=== PATIENT | male | born 1995 | race Caucasian/White ===

== ENCOUNTER 2017-01-16 06:07 | Emergency (ER) | payer OTHER ==
[~2017-01-16] VITALS: Ht 182.9 cm; Wt 96.5 kg
[2017-01-16 06:12] VITALS: TEMP 36.4; Ht 182.9 cm; Wt 96.5 kg
[2017-01-16] MEDS ORDERED: ONDANSETRON INJ 2 MG/ML 2 ML VIAL IV STA ×2 (06:38→09:27)
[2017-01-16] MEDS ORDERED: SODIUM CHLORIDE 0.9% 1000ML 1,000 ML IV STA (06:38)
--- NOTE | 2017-01-16 06:53 | EMERGENCY ROOM VISIT NOTE ---
History First contact with patient: 06:29 Chief Complaint: VOMITING Stated Complaint: VOMITING,SEVERE DEHYDRATION Nursing Triage Summary: VOMITING SINCE LAST NITE History of Present Illness The patient is a 21 year old male who presents to the Emergency Room with complaints of nausea and vomiting. The patient began having vomiting last night at 8pm and has had 10+ episodes since. The vomiting began with food with liquid and is now dry heaving. The patient states he was outside all day touring the [facility] and then between 2pm and 6pm had 6 alcoholic drinks. He also says he has not been drinking water over the last 24 hours. The patient has a history of similar yearly episodes of vomiting since he was 9 year old with no episodes within the last 3 years. He denies ingesting any different foods, fevers, chills, diarrhea, blood in his vomit, chest pain, recent travel, sick contacts, or any other significant acute complaints. Review of Systems See HPI for pertinent positives and negatives. A total of ten systems were reviewed and were otherwise negative. Past Medical/Surgical History Medical Problems: (1) No Known Active Medical Problems Appendectomy Social History Smoking Status: Never Smoker Current/Historical Medications Scheduled PRN Cetirizine (Zyrtec), 10 MG PO DAILY PRN for ALLERGIC REACTION Allergies Coded Allergies: No Known Allergies (Unverified , 01/16/17) Physical Exam Vital Signs Date Time Temp Pulse Resp B/P (MAP) Pulse Ox O2 Delivery O2 Flow Rate FiO2 01/16/17 09:45 102 18 131/71 98 Room Air 01/16/17 06:12 36.4 91 20 154/85 97 Room Air Physical Exam GENERAL: Awake, alert, well-appearing, in no distress HENT: Normocephalic, atraumatic. Oropharynx unremarkable. EYES: Normal conjunctiva. Sclera non-icteric. NECK: Supple. No nuchal rigidity. RESPIRATORY: Clear to auscultation. CARDIAC: Regular rate, normal rhythm. Extremities warm and well perfused. Pulses equal. ABDOMEN: Soft, non-distended. No tenderness to palpation. No rebound or guarding. No masses. RECTAL: Deferred. MUSCULOSKELETAL: Chest examination reveals no tenderness. The back is symmetrical on inspection without obvious abnormality. There is no CVA tenderness to palpation. LOWER EXTREMITIES: Calves are equal size bilaterally and non-tender. No edema. No discoloration. NEURO: Normal sensorium. No sensory or motor deficits noted. SKIN: No rash or jaundice noted. Medical Decision & Procedures Laboratory Results 01/16/17 06:35 Red Blood Count 5.52, Mean Corpuscular Volume 80.8, Mean Corpuscular Hemoglobin 29.2, Mean Corpuscular Hemoglobin Concent 36.1, Mean Platelet Volume 10.4, Neutrophils (%) (Auto) 84.1, Lymphocytes (%) (Auto) 10.7, Monocytes (%) (Auto) 4.5, Eosinophils (%) (Auto) 0.3, Basophils (%) (Auto) 0.1, Neutrophils # (Auto) 8.24, Lymphocytes # (Auto) 1.05, Monocytes # (Auto) 0.44, Eosinophils # (Auto) 0.03, Basophils # (Auto) 0.01 01/16/17 06:35 Test 01/16/17 06:35 White Blood Count 9.80 K/uL (4.8-10.8) Red Blood Count 5.52 M/uL (4.7-6.1) Hemoglobin 16.1 g/dL (14.0-18.0) Hematocrit 44.6 % (42-52) Mean Corpuscular Volume 80.8 fL (80-100) Mean Corpuscular Hemoglobin 29.2 pg (25-34) Mean Corpuscular Hemoglobin Concent 36.1 g/dl (32-36) Platelet Count 295 K/uL (130-400) Mean Platelet Volume 10.4 fL (7.4-10.4) Neutrophils (%) (Auto) 84.1 % Lymphocytes (%) (Auto) 10.7 % Monocytes (%) (Auto) 4.5 % Eosinophils (%) (Auto) 0.3 % Basophils (%) (Auto) 0.1 % Neutrophils # (Auto) 8.24 K/uL (1.4-6.5) Lymphocytes # (Auto) 1.05 K/uL (1.2-3.4) Monocytes # (Auto) 0.44 K/uL (0.11-0.59) Eosinophils # (Auto) 0.03 K/uL (0-0.5) Basophils # (Auto) 0.01 K/uL (0-0.2) RDW Standard Deviation 36.1 fL (36.4-46.3) RDW Coefficient of Variation 12.3 % (11.5-14.5) Immature Granulocyte % (Auto) 0.3 % Immature Granulocyte # (Auto) 0.03 K/uL (0.00-0.02) Anion Gap 7.0 mmol/L (3-11) Est Creatinine Clear Calc Drug Dose 143.1 ml/min Estimated GFR () 125.9 Estimated GFR (Non- 108.6 BUN/Creatinine Ratio 14.2 (10-20) Calcium Level 9.7 mg/dl (8.5-10.1) Total Bilirubin 0.9 mg/dl (0.2-1) Direct Bilirubin 0.2 mg/dl (0-0.2) Aspartate Amino Transf (AST/SGOT) 17 U/L (15-37) Alanine Aminotransferase (ALT/SGPT) 41 U/L (12-78) Alkaline Phosphatase 90 U/L (45-117) Total Protein 8.4 gm/dl (6.4-8.2) Albumin 4.8 gm/dl (3.4-5.0) Lipase 79 U/L (73-393) Medications Administered Medications (Trade) Dose Ordered Sig/Kelvin Route Start Time Stop Time Status Last Admin Dose Admin Sodium Chloride 1,000 ml @ 999 mls/hr Q1H1M STAT IV 01/16/17 06:38 01/16/17 07:38 DC 01/16/17 06:38 999 MLS/HR Ondansetron HCl (Zofran Inj) 4 mg NOW STAT IV 01/16/17 06:38 01/16/17 06:42 DC 01/16/17 06:38 4 MG Ondansetron HCl (Zofran Inj) 4 mg STK-MED ONCE .ROUTE 01/16/17 09:27 01/16/17 09:28 DC 01/16/17 10:01 4 MG Prochlorperazine Edisylate (Compazine Inj) 10 mg NOW STAT IV 01/16/17 10:36 01/16/17 10:37 DC 01/16/17 10:48 10 MG Medical Decision Patient is a 21 year old male that presents with a 12 hour history of vomiting Etiologies such as dehydration, gastroenteritis, obstruction, inflammatory bowel disease, PUD, biliary pathology, pancreatitis, as well as others were entertained. Meds: Zofran 4mg IV, Compazine Fluids: 1L NS Bolus Labs: CBC, BMP, LFT, Lipase Impression Primary Impression: Vomiting Patient is a 21 year old male that presents with nausea and vomiting since 8pm yesterday evening. It appears to be due to dehydration and alcohol ingestion. The patient responded well initially to Zofran and 1L NS bolus. His lab work was within normal limits. The patient then went to sleep, and after he woke up he then had another episode of vomiting. He was then given another dose of 4 mg of IV Zofran. Afterwards he had another episode of vomiting and was subsequently given a dose of Compazine. After falling asleep for another hour he awoke feeling much improved and stated he was repaired for discharge home. Departure Information Dispostion Home / Self-Care Condition GOOD Referrals No Doctor, Assigned (PCP) Forms HOME CARE DOCUMENTATION FORM, IMPORTANT VISIT INFORMATION Patient Instructions My [facility] Additional Instructions Rest and drink fluids as tolerated. Slow sips of water or sports drinks are recommended instead of large amounts all at once. Once your stomach is settled start with a clear liquid diet (jello, soup broth, etc.) and then advance as tolerated. You should avoid full, heavy meals for about 24 hrs from the time your symptoms resolved. Return to the ER immediately for worsening or persistent abdominal pain, vomiting, fevers, chest pains, difficulty breathing, black or bloody stools, worsening of your condition, or as needed. Follow up with your primary physician in 2-3 days for a recheck of your current condition. Problem Qualifiers Primary Impression: Vomiting Vomiting type: unspecified Vomiting Intractability: non-intractable Nausea presence: with nausea Qualified Codes: R11.2 - Nausea with vomiting, unspecified
[2017-01-16] MEDS ORDERED: CETI10TA84 PO (07:03)
[2017-01-16 07:10] LABS: BASO % 0.1 %; BASO ABS # 0.01 K/uL (0-0.2); COMPLETE YES; EOS % 0.3 %; HEMATOCRIT 44.6 % (42-52); IG% 0.3 %; LYMPH % 10.7 %; LYMPH ABS # 1.05 K/uL (1.2-3.4); MEAN CELL VOLUME 80.8 fL (80-100); MEAN CORPUSCULAR HEMOGLOBIN 29.2 pg (25-34); MEAN CORPUSCULAR HGB CONC 36.1 g/dl (32-36); MEAN PLATELET VOLUME 10.4 fL (7.4-10.4); MONO % 4.5 %; NEUT % 84.1 %; PLATELET COUNT 295 K/uL (130-400); RED BLOOD COUNT 5.52 M/uL (4.7-6.1)
[2017-01-16 07:21] LABS: BUN/CREATININE RATIO 14.2 (10-20); CALCIUM 9.7 mg/dl (8.5-10.1); POTASSIUM 3.8 mmol/L (3.5-5.1)
--- NOTE | 2017-01-16 08:53 | EMERGENCY ROOM VISIT NOTE ---
History Report prepared by Aliciaibnuria: Hernesto Loredo Under the Supervision of: Dr. Prudencio Keller D.O. First contact with patient: 06:36 Chief Complaint: VOMITING Stated Complaint: VOMITING,SEVERE DEHYDRATION Nursing Triage Summary: VOMITING SINCE LAST NITE History of Present Illness The patient is a 21 year old male who presents to the Emergency Room with complaints of persistent vomiting beginning last night. He states that was out in the sun all day yesterday, and admits to drinking multiple alcoholic drinks yesterday. He has a history of vomiting associated with dehydration which occurs typically about once a year. The patient believes he is likely currently dehydrated. He denies any headache, bloody vomit, chest pain, diarrhea, or constipation. Nothing has improved his symptoms. The patient states that he has been dry heaving for the past 7 hours. Source of History: patient Onset: Last night Quality: other (vomiting) Timing: other (persistent) Modifying Factors (Relieving): other (none) Associated Symptoms: No headache, No chest pain, No diarrhea Review of Systems See HPI for pertinent positives & negatives. A total of 10 systems reviewed and were otherwise negative. Past Medical & Surgical Medical Problems: (1) No Known Active Medical Problems Family History FH: ALS (amyotrophic lateral sclerosis) Social History Smoking Status: Never Smoker Occupation Status: student Current/Historical Medications Scheduled PRN Cetirizine (Zyrtec), 10 MG PO DAILY PRN for ALLERGIC REACTION Allergies Coded Allergies: No Known Allergies (Unverified , 01/16/17) Physical Exam Vital Signs Date Time Temp Pulse Resp B/P (MAP) Pulse Ox O2 Delivery O2 Flow Rate FiO2 01/16/17 06:12 36.4 91 20 154/85 97 Room Air Physical Exam CONSTITUTIONAL/VITAL SIGNS: Reviewed / noted above. GENERAL: Non-toxic in appearance. INTEGUMENTARY: Warm, dry, and [place]. HEAD: Normocephalic. EYES: without scleral icterus or trauma. ENT/OROPHARYNX: clear and moist. LYMPHADENOPATHY/NECK: Is supple without lymphadenopathy or meningismus. RESPIRATORY: Lungs clear and equal. CARDIOVASCULAR: Regular rate and rhythm. GI/ABDOMEN: Soft. No organomegaly or pulsatile mass. No rebound or guarding. Normal bowel sounds. Epigastric tenderness to palpation. EXTREMITIES: Warm and well perfused. BACK: No CVA tenderness. NEUROLOGICAL: Intact without focal deficits. PSYCHIATRIC: normal affect. MUSCULOSKELETAL: Normally developed with good muscle tone. Medical Decision & Procedures Laboratory Results 01/16/17 06:35 Red Blood Count 5.52, Mean Corpuscular Volume 80.8, Mean Corpuscular Hemoglobin 29.2, Mean Corpuscular Hemoglobin Concent 36.1, Mean Platelet Volume 10.4, Neutrophils (%) (Auto) 84.1, Lymphocytes (%) (Auto) 10.7, Monocytes (%) (Auto) 4.5, Eosinophils (%) (Auto) 0.3, Basophils (%) (Auto) 0.1, Neutrophils # (Auto) 8.24, Lymphocytes # (Auto) 1.05, Monocytes # (Auto) 0.44, Eosinophils # (Auto) 0.03, Basophils # (Auto) 0.01 01/16/17 06:35 Test 01/16/17 06:35 White Blood Count 9.80 K/uL (4.8-10.8) Red Blood Count 5.52 M/uL (4.7-6.1) Hemoglobin 16.1 g/dL (14.0-18.0) Hematocrit 44.6 % (42-52) Mean Corpuscular Volume 80.8 fL (80-100) Mean Corpuscular Hemoglobin 29.2 pg (25-34) Mean Corpuscular Hemoglobin Concent 36.1 g/dl (32-36) Platelet Count 295 K/uL (130-400) Mean Platelet Volume 10.4 fL (7.4-10.4) Neutrophils (%) (Auto) 84.1 % Lymphocytes (%) (Auto) 10.7 % Monocytes (%) (Auto) 4.5 % Eosinophils (%) (Auto) 0.3 % Basophils (%) (Auto) 0.1 % Neutrophils # (Auto) 8.24 K/uL (1.4-6.5) Lymphocytes # (Auto) 1.05 K/uL (1.2-3.4) Monocytes # (Auto) 0.44 K/uL (0.11-0.59) Eosinophils # (Auto) 0.03 K/uL (0-0.5) Basophils # (Auto) 0.01 K/uL (0-0.2) RDW Standard Deviation 36.1 fL (36.4-46.3) RDW Coefficient of Variation 12.3 % (11.5-14.5) Immature Granulocyte % (Auto) 0.3 % Immature Granulocyte # (Auto) 0.03 K/uL (0.00-0.02) Anion Gap 7.0 mmol/L (3-11) Est Creatinine Clear Calc Drug Dose 143.1 ml/min Estimated GFR () 125.9 Estimated GFR (Non- 108.6 BUN/Creatinine Ratio 14.2 (10-20) Calcium Level 9.7 mg/dl (8.5-10.1) Total Bilirubin 0.9 mg/dl (0.2-1) Direct Bilirubin 0.2 mg/dl (0-0.2) Aspartate Amino Transf (AST/SGOT) 17 U/L (15-37) Alanine Aminotransferase (ALT/SGPT) 41 U/L (12-78) Alkaline Phosphatase 90 U/L (45-117) Total Protein 8.4 gm/dl (6.4-8.2) Albumin 4.8 gm/dl (3.4-5.0) Lipase 79 U/L (73-393) Laboratory results as stated above per my review. Medications Administered Medications (Trade) Dose Ordered Sig/Kelvin Route Start Time Stop Time Status Last Admin Dose Admin Sodium Chloride 1,000 ml @ 999 mls/hr Q1H1M STAT IV 01/16/17 06:38 01/16/17 07:38 DC 01/16/17 06:38 999 MLS/HR Ondansetron HCl (Zofran Inj) 4 mg NOW STAT IV 01/16/17 06:38 01/16/17 06:42 DC 01/16/17 06:38 4 MG ED Course 0634: Previous medical records were reviewed. The patient was evaluated in room B10. A complete history and physical examination was performed. 0638: Ordered Zofran Inj 4 mg IV, Sodium Chloride 1000 ml @ 999 mls/hr IV. 0750: I checked in on the patient. He is sleeping comfortably. 0850: On reevaluation, the patient is resting comfortably. I discussed the results and findings with the patient. He verbalized agreement of the treatment plan. He was discharged home. Medical Decision Differential diagnosis: Etiologies such as gastroenteritis, food borne illness, infections, appendicitis , diverticulitis, inflammatory bowel disease, obstruction, GI bleed, biliary pathology, as well as others were entertained. This is a 21-year-old male who presents to the ED with a chief complaint of nausea and vomiting. The patient states that his symptoms started around 8 PM last night. He had been drinking some alcohol prior to this. He reports a history of occasional vomiting over the years. He states that he normally goes to [facility] and gets IV fluids and IV Zofran for this. He denies any significant abdominal pains. Denies any other issues. His physical exam reveals some mild epigastric abdominal tenderness. CBC and PRP are normal. LFTs and lipase are normal. The patient was told the results. The patient was treated with IV fluids and IV Zofran. He is felt to be stable for discharge. Seen in conjunction with the resident. Impression Primary Impression: Vomiting Scribe Attestation The scribe's documentation has been prepared under my direction and personally reviewed by me in its entirety. I confirm that the note above accurately reflects all work, treatment, procedures, and medical decision making performed by me. Departure Information Referrals No Doctor, Assigned (PCP) Patient Instructions My [facility]
[2017-01-16] MEDS ORDERED: ONDANSETRON INJ 2 MG/ML 2 ML VIAL ONE (09:27)
[2017-01-16] MEDS ORDERED: PROCHLORPERAZINE 5 MG/ML 2 ML VIAL IV STA (10:36)
[2017-01-16 12:12] VITALS: BP 147/90; PULSE 94; O2SAT 99
[2017-01-16] MEDS ORDERED: PROM25TA9 PO (22:35)
[2017-01-16] MEDS ORDERED: ONDA4TAB10 SL (22:35)
== END 2017-01-16 12:14 | disposition home or self-care (01) ==
LOC: C.EDB 06:09
DX: R11.10 Vomiting, unspecified (principal)

== ENCOUNTER 2017-01-16 18:55 | Emergency (ER) | payer OTHER ==
[~2017-01-16] VITALS: Ht 182.9 cm; Wt 97.1 kg
[~2017-01-16 18:55] MED LIST: CETI10TA84 PO
[2017-01-16 19:04] VITALS: TEMP 36.9; Ht 182.9 cm; Wt 97.1 kg
[2017-01-16] MEDS ORDERED: PROCHLORPERAZINE 5 MG/ML 2 ML VIAL IV STA (19:22)
[2017-01-16] MEDS ORDERED: DiphenhydrAMINE HCL 50 MG/ML VIAL IV STA (19:22)
[2017-01-16] MEDS ORDERED: SODIUM CHLORIDE 0.9% 1000ML 2,000 ML IV STA (19:22)
[2017-01-16] MEDS ORDERED: RANITIDINE HCL 50 MG/100 ML D5W IV STA (19:22)
[2017-01-16 20:04] LABS: BASO % 0.1 %; BASO ABS # 0.01 K/uL (0-0.2); COMPLETE YES; EOS % 0.6 %; HEMATOCRIT 43.1 % (42-52); IG% 0.3 %; LYMPH % 15.1 %; LYMPH ABS # 1.77 K/uL (1.2-3.4); MEAN CELL VOLUME 80.3 fL (80-100); MEAN CORPUSCULAR HEMOGLOBIN 28.7 pg (25-34); MEAN CORPUSCULAR HGB CONC 35.7 g/dl (32-36); MEAN PLATELET VOLUME 9.8 fL (7.4-10.4); MONO % 8.5 %; NEUT % 75.4 %; PLATELET COUNT 285 K/uL (130-400); RED BLOOD COUNT 5.37 M/uL (4.7-6.1); WHITE BLOOD COUNT 11.72 K/uL (4.8-10.8)
[2017-01-16 20:20] LABS: BUN/CREATININE RATIO 12.4 (10-20); CALCIUM 9.2 mg/dl (8.5-10.1); POTASSIUM 3.6 mmol/L (3.5-5.1)
[2017-01-16 20:23] LABS: ALB/GLOB RATIO 1.3 (0.9-2)
--- NOTE | 2017-01-16 20:52 | DIAGNOSTIC IMAGING REPORT ---
ABDOMEN 2VIEW W/PA CHEST RTN CLINICAL HISTORY: Nausea and vomiting COMPARISON STUDY: No previous studies for comparison. FINDINGS: The erect chest reveals no evidence of free air. There is no evidence of focal pulmonary consolidation.] Erect and supine views of the abdomen reveal no abnormally dilated loops of large or small bowel. There are no transition zone to indicate bowel obstruction. IMPRESSION: No evidence of bowel obstruction. No evidence of free air. Electronically signed by: Angel Mata M.D. 01/16/2017 8:50 PM Dictated Date/Time: 01/16/2017 8:50 PM
[2017-01-16 22:22] VITALS: BP 148/79; PULSE 84; O2SAT 99
[2017-01-16] MEDS ORDERED: ONDA4TAB10 SL (22:35)
[2017-01-16] MEDS ORDERED: PROM25TA9 PO (22:35)
--- NOTE | 2017-01-16 22:36 | EMERGENCY ROOM VISIT NOTE ---
History First contact with patient: 19:06 Chief Complaint: VOMITING Stated Complaint: NAUSEA/VOMITING FROM LAST NIGHT History of Present Illness Patient is an otherwise healthy 21-year-old white male who returns to the emergency department for complaints of nausea and vomiting that began roughly 24 hours ago. Patient was seen and treated here in the emergency department earlier today for the same symptoms. Patient is from [place], and is here locally with a friend visiting for the weekend. He states that yesterday he walked around campus in the heat. He did not have a lot of water to drink. Later that evening, they went out for food. He ate chocolate and pizza and reports having roughly 5 beers over 5 hours, and started vomiting at 2000. He attributed this to the alcohol even though he did not feel that he had consumed in excess. He reports that friends ate the same foods that he did and are not ill. Patient reports vomiting multiple times prior to presenting to the emergency department around 0600 this morning. He was seen and treated with IV fluids, given Zofran IV 2 with little relief of his symptoms and finally given Compazine which did help him to rest, he felt improved and was discharged around 1200. He reports that he vomited roughly 45 minutes after discharge. He tried sipping on water and Gatorade and ate a Jell-O copy. He started taking Pepto-Bismol around 1300, was consuming a dose of Pepto-Bismol roughly every 30 minutes to one hour until just prior to arrival when he again had an episode of vomiting. He has not had any diarrhea. He urinated at the hospital at discharge, but has not urinated since. He reports mild mid epigastric abdominal discomfort which she describes as a pressure and rates a 2/10. He denies hematemesis. No dysuria or hematuria. He is status post appendectomy. He reports that he has had episodes of nausea and vomiting similar to this in the past. He denies any recent antibiotic use, unusual food or water consumption or foreign travel. No sick contacts. Review of Systems Review of systems as per HPI. All other systems reviewed were negative. 10 systems reviewed. Past Medical/Surgical History Medical Problems: (1) No Known Active Medical Problems (2) Vomiting Surgical Problems: (1) History of appendectomy Electronic medical records are reviewed and summarized as above/below. See Problem List. Family History FH: ALS (amyotrophic lateral sclerosis) Social History Smoking Status: Never Smoker Alcohol Use: occasionally Housing Status: lives with family Occupation Status: student Current/Historical Medications Scheduled PRN Cetirizine (Zyrtec), 10 MG PO DAILY PRN for ALLERGIC REACTION Ondasetron Odt (Zofran Odt), 4 MG SL Q6H PRN for Nausea or Vomiting Promethazine Hcl (Phenergan), 25 MG PO Q6H PRN for Nausea Allergies Coded Allergies: No Known Allergies (Unverified , 01/16/17) Physical Exam Vital Signs Date Time Temp Pulse Resp B/P (MAP) Pulse Ox O2 Delivery O2 Flow Rate FiO2 01/16/17 22:22 84 14 148/79 99 Room Air 01/16/17 21:50 74 20 100 Room Air 01/16/17 20:24 77 16 127/70 100 Room Air 01/16/17 19:04 36.9 77 16 144/97 97 Room Air Physical Exam CONSTITUTIONAL: Patient is a well-appearing 21-year-old white male who is awake and alert and in no acute distress. Vital signs are stable. EYES: Pupils equal, round, reactive to light and accommodation. EOMs intact without nystagmus. Sclera are anicteric. ENT: Tympanic membranes intact, with normal landmarks. External canals are clear. Oral and nasopharynx are clear. Mucous membranes are moist, no lesions , tongue and gums appear normal. NECK: Supple without lymphadenopathy. No thyromegaly. No meningeal signs. Full active range of motion without discomfort. CARDIOVASCULAR: Regular rate and rhythm, with normal S1 and S2, no murmur or gallop or rub is heard. No carotid bruits auscultated. No JVD. Peripheral pulses easy to palpable. RESPIRATORY: Breath sounds equal and clear to auscultation without wheezes, rales, or rhonchi heard. Full and equal chest expansion without accessory muscle use or retractions. GI: Bowel sounds are present. Well-healed surgical scars are noted. Abdomen is soft, nontender, nondistended. No organomegaly. No pulsatile masses. No guarding or rebound. MUSCULOSKELETAL: Full range of motion of extremities x 4 with good strength. No cyanosis, edema, joint tenderness or swelling. No deformity. INTEGUMENTARY: No lesions or rash, normal skin turgor. NEUROLOGICAL: Alert, oriented, and cooperative. Cranial nerves, sensation and strength grossly intact. Pupils round, equal, and react to light, EOMs are full. LYMPH: No lymphadenopathy. Medical Decision & Procedures ER Provider Diagnostic Interpretation: ABDOMEN 2VIEW W/PA CHEST RTN CLINICAL HISTORY: Nausea and vomiting COMPARISON STUDY: No previous studies for comparison. FINDINGS: The erect chest reveals no evidence of free air. There is no evidence of focal pulmonary consolidation.] Erect and supine views of the abdomen reveal no abnormally dilated loops of large or small bowel. There are no transition zone to indicate bowel obstruction. IMPRESSION: No evidence of bowel obstruction. No evidence of free air. Laboratory Results 01/16/17 19:52 Red Blood Count 5.37, Mean Corpuscular Volume 80.3, Mean Corpuscular Hemoglobin 28.7, Mean Corpuscular Hemoglobin Concent 35.7, Mean Platelet Volume 9.8, Neutrophils (%) (Auto) 75.4, Lymphocytes (%) (Auto) 15.1, Monocytes (%) (Auto) 8.5, Eosinophils (%) (Auto) 0.6, Basophils (%) (Auto) 0.1, Neutrophils # (Auto) 8.83, Lymphocytes # (Auto) 1.77, Monocytes # (Auto) 1.00, Eosinophils # (Auto) 0.07, Basophils # (Auto) 0.01 01/16/17 19:52 Test 01/16/17 19:52 White Blood Count 11.72 K/uL (4.8-10.8) Red Blood Count 5.37 M/uL (4.7-6.1) Hemoglobin 15.4 g/dL (14.0-18.0) Hematocrit 43.1 % (42-52) Mean Corpuscular Volume 80.3 fL (80-100) Mean Corpuscular Hemoglobin 28.7 pg (25-34) Mean Corpuscular Hemoglobin Concent 35.7 g/dl (32-36) Platelet Count 285 K/uL (130-400) Mean Platelet Volume 9.8 fL (7.4-10.4) Neutrophils (%) (Auto) 75.4 % Lymphocytes (%) (Auto) 15.1 % Monocytes (%) (Auto) 8.5 % Eosinophils (%) (Auto) 0.6 % Basophils (%) (Auto) 0.1 % Neutrophils # (Auto) 8.83 K/uL (1.4-6.5) Lymphocytes # (Auto) 1.77 K/uL (1.2-3.4) Monocytes # (Auto) 1.00 K/uL (0.11-0.59) Eosinophils # (Auto) 0.07 K/uL (0-0.5) Basophils # (Auto) 0.01 K/uL (0-0.2) RDW Standard Deviation 35.7 fL (36.4-46.3) RDW Coefficient of Variation 12.4 % (11.5-14.5) Immature Granulocyte % (Auto) 0.3 % Immature Granulocyte # (Auto) 0.04 K/uL (0.00-0.02) Anion Gap 8.0 mmol/L (3-11) Est Creatinine Clear Calc Drug Dose 143.5 ml/min Estimated GFR () 125.9 Estimated GFR (Non- 108.6 BUN/Creatinine Ratio 12.4 (10-20) Calcium Level 9.2 mg/dl (8.5-10.1) Total Bilirubin 1.1 mg/dl (0.2-1) Aspartate Amino Transf (AST/SGOT) 13 U/L (15-37) Alanine Aminotransferase (ALT/SGPT) 34 U/L (12-78) Alkaline Phosphatase 80 U/L (45-117) Total Protein 7.8 gm/dl (6.4-8.2) Albumin 4.4 gm/dl (3.4-5.0) Globulin 3.4 gm/dl (2.5-4.0) Albumin/Globulin Ratio 1.3 (0.9-2) Lipase 95 U/L (73-393) Medications Administered Medications (Trade) Dose Ordered Sig/Kelvin Route Start Time Stop Time Status Last Admin Dose Admin Sodium Chloride 2,000 ml @ 999 mls/hr Q2H1M STAT IV 01/16/17 19:22 01/16/17 21:22 DC 01/16/17 19:47 999 MLS/HR Ranitidine HCl (zANTac IV) 50 mg NOW STAT IV 01/16/17 19:22 01/16/17 19:24 DC 01/16/17 19:22 50 MG Prochlorperazine Edisylate (Compazine Inj) 10 mg NOW STAT IV 01/16/17 19:22 01/16/17 19:24 DC 01/16/17 19:47 10 MG Diphenhydramine HCl (Benadryl Inj) 25 mg NOW STAT IV 01/16/17 19:22 01/16/17 19:24 DC 01/16/17 19:47 25 MG ED Course The patient was seen and assessed as above. His old records are reviewed specifically his visit from earlier this morning. IV lock was initiated. Patient was hydrated with a 2 L bolus of normal saline solution. He was medicated with Zantac 50 mg IV, Compazine 10 mg IV and Benadryl 25 mg IV. CBC with differential, CMP, lipase and urinalysis were repeated. Acute abdominal series was obtained and was unremarkable. Laboratory studies noted a slight elevation of his white count at 11,700, likely related to the stress of vomiting and edema to nation. H&H is normal. Electrolytes and renal functions are within normal limits. Liver functions are not significantly elevated. Lipase is not indicative of acute pancreatitis. The patient was reassessed after he returned from x-ray. He was asleep. He had to be shaken to be woken, and reported that his stomach had "settled." He was reassessed a little bit later when his IV fluids had completed. He continued to report feeling well. He got up and use the bathroom. Urine sample was collected and dipped and noted moderate ketones, no other indicators for infection. He was given oral fluids. He was made aware of the results of his laboratory and diagnostic imaging studies and was reassured. Differential diagnoses entertained included infectious versus inflammatory colitis, food borne illness, gastroenteritis, dehydration, bowel obstruction, electrolyte or metabolic abnormality, among others. His abdominal exam is benign. He is tolerating oral fluids. He is felt to be appropriate for discharge to home. He was given Zofran and Phenergan home packs, and prescriptions that he can fill when he returns to [place] if necessary. He was discharged home with friends driving in stable condition. Medication reconciliation: I attest that I have personally reviewed the patient' s current medication list. Blood pressure screening: Patient was found to have a slightly elevated blood pressure due to circumstances. I do not believe that the patient requires hypertension monitoring. Medical Decision See Emergency Department course. Impression Primary Impression: Nausea and vomiting Departure Information Prescriptions Promethazine Hcl (Phenergan) 25 Mg Tab 25 MG PO Q6H Y for Nausea, #20 TAB Prov: Goldie Pulido PA 01/16/17 Ondasetron Odt (ZOFRAN ODT) 4 Mg Tab 4 MG SL Q6H Y for Nausea or Vomiting, #20 TAB Prov: Goldie Pulido PA 01/16/17 Referrals No Doctor, Assigned (PCP) Patient Instructions [facility] Additional Instructions DO NOT drive, drink alcohol, operate machinery, or perform dangerous activities today. You were given medications in the ER that can affect your ability to safely function or operate a vehicle. Phenergan(promethazine) tablets 25mg: Take one every six hours as needed for nausea. Avoid alcohol, operating machinery or dangerous equipment, working on ladders or roofs, DRIVING, or situations where being under the influence may be dangerous. Zofran(odansetron) tablets 4mg: Take one and allow it to dissolve in your mouth every four to six hours as needed for nausea or vomiting. Acetaminophen(Tylenol) may be used for fever or pain. Use 1000mg every six hours as needed. Avoid using more than 4000mg in a 24 hour period. Rest and drink plenty of fluids as tolerated. Slow sips of water or sports drinks are recommended instead of large amounts all at once. Continue current medications. Once your stomach is settled start with a clear liquid diet (jello, soup broth, etc.) and then advance as tolerated. You should avoid full, heavy meals for about 24 hrs from the time your symptoms resolved. Return to the ER for persistent vomiting, fevers, abdominal pain, chest pains, difficulty breathing, black or bloody stools, worsening of your condition, or as needed. Follow up with your primary physician in 2-3 days for a recheck of your current condition. Problem Qualifiers Primary Impression: Nausea and vomiting Vomiting type: unspecified Vomiting Intractability: non-intractable Qualified Codes: R11.2 - Nausea with vomiting, unspecified
[2017-01-16] MEDS ORDERED: ONDANSETRON HOME PACK 4MG OD TAB PO ONE (22:45)
[2017-01-16] MEDS ORDERED: PHENERGAN 25MG HOMEPACK PO ONE (22:45)
== END 2017-01-16 22:50 | disposition home or self-care (01) ==
LOC: C.EDB 18:56 → C.EDC 22:50
DX: R11.2 Nausea with vomiting, unspecified (principal)